=== PATIENT | female | born 1955 | race Caucasian/White ===

== ENCOUNTER 2021-10-28 15:42 | Emergency (ER) | payer OTHER ==
[~2021-10-28] VITALS: Ht 152.4 cm; Wt 84.8 kg
[~2021-10-28 15:42] MED LIST: ALBU90OI6 INH; CLOB.05TO; CYCL10 PO; HYDACE5 PO; IBUP600 PO; LOSA50 PO; OXYACE5T PO
[2021-10-28 16:46] LABS: Influenza B, PCR NEGATIVE (NEGATIVE); Resp Syncytial Virus, PCR NEGATIVE (NEGATIVE); SARS-Cov-2 (COVID-19) PCR, MMC NEGATIVE (NEGATIVE)
[2021-10-28 17:42] LABS: Influenza A, PCR POSITIVE (NEGATIVE)
[2021-10-28] MEDS ORDERED: CODEINE-GUAIFE120 M1 PO (18:35)
[2021-10-28] MEDS ORDERED: BENZ100A PO (18:35)
== END 2021-10-28 18:46 | disposition home or self-care (01) ==
LOC: ER 15:42
PROVIDERS: Physician Assistant
DX: J10.1 Influenza due to other identified influenza virus with other respiratory manifestations (principal); Z88.5 Allergy status to narcotic agent; Z88.8 Allergy status to other drugs, medicaments and biological substances; Z79.899 Other long term (current) drug therapy; I10 Essential (primary) hypertension; J45.909 Unspecified asthma, uncomplicated
CPT/HCPCS: 0241U; 71046; 99284-25; A9270

== ENCOUNTER → 2022-02-04 | Outpatient (CLI) | payer OTHER ==
[~2022-02-04] MED LIST changes: +BENZ100A PO; +CODEINE-GUAIFE120 M1 PO
[2022-02-07 10:15] LABS: Stool Occult Bld Immuno 1 Negative (NEGATIVE)
== END | disposition home or self-care (01) ==
LOC: LAB SHORT 17:23 → LAB FUT 02-04 15:05
PROVIDERS: Family Medicine
DX: Z12.11 Encounter for screening for malignant neoplasm of colon (principal)
CPT/HCPCS: G0328

== ENCOUNTER → 2023-06-01 | Outpatient (CLI) | payer OTHER ==
[2023-06-04 10:15] LABS: Stool Occult Bld Immuno 1 Negative (NEGATIVE)
== END ==
LOC: LAB 13:05 → LAB SHORT 13:05 → LAB FUT 05-27 13:15
PROVIDERS: Family Medicine
DX: Z12.11 Encounter for screening for malignant neoplasm of colon (principal); I10 Essential (primary) hypertension; R79.9 Abnormal finding of blood chemistry, unspecified
CPT/HCPCS: G0328